=== PATIENT | male | born 1955 | race Caucasian/White ===

== ENCOUNTER 2016-06-22 12:50 | Emergency (ER) | payer MEDICARE, MEDICAID ==
[2016-06-22] MEDS ORDERED: ONDANSETRON 4 MG ODT TABLET SL ONE (13:53)
--- NOTE | 2016-06-22 13:53 | Emergency Department Record ---
History of Present Illness - General Chief Complaint: Fever Stated Complaint: FEVER Time Seen by Provider: 06/22/16 13:42 Source: Patient Mode of Arrival: Wheelchair Limitations: No limitations - History of Present Illness Initial Comments: The patient is here due to not feeling well for the last 5 hours. He has had mild body aches, nausea, one episode of vomiting and loose stools with a mild cough. The patient felt that he had a fever at home but no temp was taken. He denies any SHERWOOD, ST, AP, or dysuria. MD Complaint: Malaise Onset/Timin -: Hour(s) Temperature Source: Subjective Associated Symptoms: Cough, Diarrhea - Related Data Previous Rx's Medication Instructions Recorded Azithromycin [Zithromax] 250 mg PO ASDIR #6 tab 06/22/16 Ondansetron [Zofran Odt] 4 mg SL .Q4-6H PRN #12 tab.rapdis 06/22/16 Allergies Allergy/AdvReac Type Severity Reaction Status Date / Time Penicillins [PENICILLINS] Allergy Intermediate RASH Verified 06/22/16 13:31 Travel Screening - Travel/Exposure Within Last 30 Days Have you traveled within the last 30 days?: No - Travel/Exposure Within Last Year Have you traveled outside the [place] in the last year?: No - Additonal Travel Details Have you been exposed to anyone with a communicable illness?: No - Travel Symptoms Symptom Screening: None Review of Systems Constitutional: Denies: Chills, Fever Eyes: Denies: Eye discharge ENT: Denies: Congestion Respiratory: Denies: Cough, Dyspnea Past Medical History - SOCIAL HISTORY Smoking Status: Never smoker Alcohol Use: None Drug Use: None - RESPIRATORY Hx Respiratory Disorders: No Comment:: seasonal allergies - CARDIOVASCULAR Hx Cardio Disorders: Yes Hx Hypertension: Yes - NEURO Hx Neuro Disorders: Yes Hx of Neuromuscular Disease: Yes (CP) - GI Hx GI Disorders: Yes Hx Reflux: Yes - Hx Genitourinary Disorders: No - ENDOCRINE Hx Endocrine Disorders: No - MUSCULOSKELETAL Hx Musculoskeletal Disorders: Yes Comment:: CP->wheel chair bound - PSYCH Hx Psych Problems: Yes Hx Depression: Yes - HEMATOLOGY/ONCOLOGY Hx Hematology/Oncology Disorders: No Family Medical History Any Significant Family History?: Yes Hx Heart Disease: Mother *Heart Comment: CAD Physical Exam - General General Appearance: Alert, Cooperative, No acute distress - Head Head exam: Atraumatic, Normocephalic, Normal inspection - Eye Eye exam: Normal appearance, PERRL - ENT Throat exam: Normal inspection. negative: Tonsillar erythema, Tonsillar exudate - Neck Neck exam: Normal inspection, Full ROM. negative: Tenderness - Respiratory Respiratory exam: Normal lung sounds bilaterally. negative: Respiratory distress - Cardiovascular Cardiovascular Exam: Regular rate, Normal rhythm, Normal heart sounds - GI/Abdominal GI/Abdominal exam: Soft, Normal bowel sounds. negative: Tenderness - Extremities Extremities exam: negative: Normal inspection - Neurological Neurological exam: Abnormal gait (chronic due to CP.). negative: Normal gait - Psychiatric Psychiatric exam: negative: Agitated, Anxious Course Vital Signs 06/22/16 13:33 Temperature 98.3 F Pulse Rate 105 H Respiratory 18 Rate Blood Pressure 123/82 Pulse Ox 95 - Reevaluation(s) Reevaluation #1: The patient is doing very well at this time. I did discuss the CXR report with the patient and caregiver and he states the hiatal hernia is not new for the patient. Due to the possible infiltrate in the R base we will place the patient on a Zpak. and have him F/U with his PCP later this week. 06/22/16 14:42 Reevaluation #2: The patient is doing very well at this time. He is drinking fluids well with no nausea or vomiting. He states he is ready for home. 06/22/16 14:44 Medical Decision Making - Data Complexity MDM Data: Labs Ordered and/or Reviewed, X-Ray Ordered and/or Reviewed - Lab Data Result diagrams: 06/22/16 14:07 06/22/16 14:07 - Radiology Data Radiology results: Report reviewed (CXR: Possible RLL infiltrate or atelectasis. Large hiatal hernia.) Disposition Disposition: Discharge Clinical Impression: Upper respiratory infection, acute Disposition: Home, Self-Care Condition: (1) Good Instructions: Upper Respiratory Infection (ED) Additional Instructions: Please continue your regular medicines and take the ZPak as directed along with Zofran PRN. Please see your PCP later this week and return to the ER if worse. Prescriptions: Azithromycin [Zithromax] 250 mg PO ASDIR #6 tab Ondansetron [Zofran Odt] 4 mg SL .Q4-6H PRN #12 tab.rapdis PRN Reason: Nausea Forms: Patient Portal Access Time of Disposition: 14:44
[2016-06-22] MEDS ORDERED: ACETAMINOPHEN 325 MG TAB PO ONE (13:54)
[2016-06-22 14:12] LABS: BASO % 0.5 % (0-6); EOS % 1.1 % (0-6); GRAN % 67.5 % (47-80); HEMATOCRIT 43.7 % (42.0-52.0); HEMOGLOBIN 14.7 gm/dl (14.0-18.0); LYMPH % 19.4 % (16-45); MEAN CELL VOLUME 86.2 fl (81-97); MEAN CORPUSCULAR HGB CONC 33.6 g/dl (32-36); MEAN PLATELET VOLUME 10.5 fl (7.4-10.4); MONO % 11.5 % (0-9); PLATELET COUNT 175 K/uL (130-400); RED BLOOD COUNT 5.07 M/uL (4.40-5.70); RED CELL DISTRIBUTION WIDTH 14.1 % (11.5-14.5); WHITE BLOOD COUNT W/O DIFF 7.4 K/uL (4.2-12.2)
[2016-06-22 14:25] LABS: ALB/GLOB RATIO 1.3 (1.1-1.8); ALBUMIN 4.2 gm/dL (3.5-5.0); ALKALINE PHOSPHATASE 124 U/L (38-126); ALT/SGPT 31 U/L (21-72); ANION GAP 10.6 (7-16); AST/SGOT 22 U/L (17-59); BILIRUBIN,TOTAL 0.54 mg/dL (0.2-1.3); BLOOD UREA NITROGEN 14 mg/dL (9-20); CARBON DIOXIDE 27.4 mmol/L (22-30); CREATININE 0.7 mg/dL (0.66-1.25); EST GLOMERULAR FILTRATION RATE > 60 ml/min; GLUCOSE,RANDOM 120 mg/dL (70-110); TOTAL PROTEIN 7.5 gm/dL (6.3-8.2)
== END 2016-06-22 14:55 | disposition home or self-care (01) ==
LOC: ER 12:50
DX: J06.9 Acute upper respiratory infection, unspecified (principal); R19.7 Diarrhea, unspecified; R11.2 Nausea with vomiting, unspecified; R05 Cough
CPT/HCPCS: 71020; 80053; 85025; 99283; 99284

== ENCOUNTER 2016-09-25 11:55 | Emergency (ER) | payer MEDICARE, MEDICAID ==
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
== END 2016-09-25 12:51 | disposition home or self-care (01) ==
LOC: ER 11:55
DX: S00.90XA Unspecified superficial injury of unspecified part of head, initial encounter (principal); V78.1XXA Passenger on bus injured in noncollision transport accident in nontraffic accident, initial encounter
CPT/HCPCS: 99282

== ENCOUNTER 2017-01-25 13:38 | Emergency (ER) | payer MEDICARE, MEDICAID ==
--- NOTE | 2017-01-25 14:11 | Emergency Department Record ---
History of Present Illness - General Chief complaint: Rectal bleeding Stated complaint: BLOOD IN STOOL Time Seen by Provider: 01/25/17 13:48 Source: Patient Mode of Arrival: Wheelchair Limitations: No limitations - History of Present Illness Initial comments: 61 yo male presents with blood reported in his stool last night. No blood or bowel movement today. The patient denies any pain. No fever. No nausea or vomiting. He reports similar symptoms in the past with hemorrhoids. He denies any rectal or anus pain. He lives in a local assisted. No abdominal pain. No anticoagulants. On 01/13/16 Dr Walsh performed a colonoscopy. He had polyps, diverticulosis, and internal hemorrhoids Onset/Timin -: Days(s) Radiation: None Quality: Painless Improves with: None Worsens with: None Associated Symptoms: Denies other symptoms Treatments Prior to Arrival: None - Related Data Allergies Allergy/AdvReac Type Severity Reaction Status Date / Time Penicillins [PENICILLINS] Allergy Intermediate RASH Unverified 09/17/16 19:51 Travel Screening - Travel/Exposure Within Last 30 Days Have you traveled within the last 30 days?: No Review of Systems Constitutional: Denies: Chills, Fever, Malaise, Weakness Eyes: Denies: Eye discharge ENT: Denies: Congestion, Throat pain Respiratory: Denies: Cough Cardiovascular: Denies: Chest pain, Syncope Endocrine: Denies: Fatigue Gastrointestinal: Reports: Hematochezia. Denies: Abdominal pain, Diarrhea, Hematemesis, Nausea, Vomiting Genitourinary: Denies: Dysuria, Frequency, Hematuria Musculoskeletal: Denies: Arthralgia, Back pain, Myalgia, Neck pain Skin: Denies: Bruising, Change in color, Rash Neurological: Denies: Headache, Numbness, Vertigo, Weakness Psychiatric: Denies: Anxiety Hematological/Lymphatic: Denies: Blood Clots, Easy bleeding, Easy bruising, Swollen glands Past Medical History - SOCIAL HISTORY Smoking Status: Never smoker - RESPIRATORY Hx Respiratory Disorders: No Comment:: seasonal allergies - CARDIOVASCULAR Hx Cardio Disorders: Yes Hx Hypertension: Yes - NEURO Hx Neuro Disorders: Yes Hx of Neuromuscular Disease: Yes (CP) - GI Hx GI Disorders: Yes Hx Reflux: Yes - Hx Genitourinary Disorders: No - ENDOCRINE Hx Endocrine Disorders: No - MUSCULOSKELETAL Hx Musculoskeletal Disorders: Yes Comment:: CP->wheel chair bound - PSYCH Hx Psych Problems: Yes Hx Depression: Yes - HEMATOLOGY/ONCOLOGY Hx Hematology/Oncology Disorders: No Family Medical History Any Significant Family History?: Yes Hx Heart Disease: Mother *Heart Comment: CAD Physical Exam - General General Appearance: Alert, Oriented x3, Cooperative Limitations: No limitations - Head Head exam: Atraumatic, Normal inspection - Eye Eye exam: Normal appearance. negative: Conjunctival injection, Scleral icterus - ENT ENT exam: Normal exam Ear exam: Normal external inspection Nasal Exam: Normal inspection Mouth exam: Normal external inspection - Neck Neck exam: Normal inspection - Respiratory Respiratory exam: Normal lung sounds bilaterally. negative: Respiratory distress - Cardiovascular Cardiovascular Exam: Regular rate, Normal rhythm, Normal heart sounds - GI/Abdominal GI/Abdominal exam: Soft. negative: Distended, Guarding, Rebound, Rigid, Tenderness - Rectal Rectal exam: Heme (+) stool, Normal inspection, Other (The stool was medium light brown, no blood visibly, He was heme positive, no melena, no mass). negative: Black stool, Bloody stool, Decreased rectal tone, Fecal impaction, Hemorrhoids, Mass Course Vital Signs 01/25/17 13:59 Temperature 97.4 F L Pulse Rate 94 H Respiratory 18 Rate Blood Pressure 143/92 Pulse Ox 94 L - Reevaluation(s) Reevaluation #1: The labs were checked No acute changes on the CBC,CMP The Hgb was 14.2 01/25/17 15:48 01/25/17 16:17 Dr Landis was notified of the patient being in the ER Dr Landis saw the patient. We established an outpatient follow up plan of care Medical Decision Making - Lab Data Result diagrams: 01/25/17 14:30 01/25/17 14:30 Disposition Disposition: Discharge Clinical Impression: Rectal bleeding Disposition: Home, Self-Care Condition: (1) Good Instructions: Rectal Bleeding (ED) Additional Instructions: Return immediately if your have pain, fever, return of blood Call your doctor for close follow up to recheck your stool for blood Referrals: SERGEY WALSH [DOCTOR OF OSTEOPATH] - [facility] Special[facility] [Provider Group] Forms: Patient Portal Access Time of Disposition: 15:50 Quality - Quality Measures Quality Measures: N/A - Blood Pressure Screening Does Patient Have Any of the Following: No Blood Pressure Classification: Pre-Hypertensive BP Reading Systolic Measurement: 128 Diastolic Measurement: 78 Screening for High Blood Pressure: < Pre-Hypertensive BP, F/U Documented > [ G8950] Pre-Hypertensive Follow-up Interventions: Referral to alternative/primary care provider.
[2017-01-25 14:35] LABS: BASO % 0.4 % (0-6); EOS % 2.4 % (0-6); HEMATOCRIT 45.5 % (42.0-52.0); MEAN CELL VOLUME 85.2 fl (81-97); MEAN CORPUSCULAR HGB CONC 35.2 g/dl (32-36); MEAN PLATELET VOLUME 10.4 fl (7.4-10.4); MONO % 12.2 % (0-9); PLATELET COUNT 187 K/uL (130-400); RED BLOOD COUNT 5.34 M/uL (4.40-5.70); RED CELL DISTRIBUTION WIDTH 14.4 % (11.5-14.5); WHITE BLOOD COUNT W/O DIFF 6.7 K/uL (4.2-12.2)
[2017-01-25 14:49] LABS: INR 0.99; PROTHROMBIN TIME (PATIENT) 10.7 SECONDS (9.5-12.1)
[2017-01-25 14:51] LABS: BLOOD UREA NITROGEN 19 mg/dL (6-20); CREATININE 0.6 mg/dL (0.7-1.2); EST GLOMERULAR FILTRATION RATE > 60 mL/min
[2017-01-25 14:52] LABS: TOTAL PROTEIN 7.7 g/dL (6.6-8.7)
[2017-01-25 14:54] LABS: GLUCOSE,RANDOM 110 mg/dL (74-109)
[2017-01-25 14:56] LABS: ALT/SGPT 18 U/L (<41); AST/SGOT 19 U/L (10.0-50.0)
[2017-01-25 14:57] LABS: ALB/GLOB RATIO 1.2 (1.1-1.8); ALBUMIN 4.2 g/dL (4.0-5.0); ALKALINE PHOSPHATASE 114 U/L (40-129)
== END 2017-01-25 16:40 | disposition home or self-care (01) ==
LOC: ER 13:38
DX: K62.5 Hemorrhage of anus and rectum (principal); I10 Essential (primary) hypertension
CPT/HCPCS: 80053; 85025; 85610; 99283

== ENCOUNTER 2017-05-18 13:51 | Emergency (ER) | payer MEDICARE, MEDICAID ==
[2017-05-18] MEDS ORDERED: ONDANSETRON 4 MG ODT TABLET SL ONE (14:37)
[2017-05-18 14:44] LABS: INFLUENZA A NEGATIVE (NEGATIVE); INFLUENZA B NEGATIVE (NEGATIVE)
--- NOTE | 2017-05-18 15:21 | Emergency Department Record ---
History of Present Illness - General Chief complaint: Nausea, Vomiting, Diarrhea Stated complaint: VOMITING, DIARRHEA Time Seen by Provider: 05/18/17 14:33 Source: Patient Mode of Arrival: Wheelchair Limitations: No limitations - History of Present Illness Initial comments: pt has been having vomiting and diarrhea for 2 days. MD complaint: Diarrhea, Nausea, Vomiting -: Unknown Improves with: None Worsens with: None Associated Symptoms: Cough, Headaches, Nausea/vomiting - Related Data Allergies Allergy/AdvReac Type Severity Reaction Status Date / Time Penicillins [PENICILLINS] Allergy Intermediate RASH Verified 05/18/17 14:11 Travel Screening - Travel/Exposure Within Last 30 Days Have you traveled within the last 30 days?: No Review of Systems Reviewed: No additional complaints except as noted below Constitutional: Reports: As per HPI. Denies: Chills, Fever, Malaise, Night sweats, Weakness, Weight change Eyes: Reports: As per HPI. Denies: Eye discharge, Eye pain, Photophobia, Vision change ENT: Reports: As per HPI. Denies: Congestion, Dental pain, Ear pain, Epistaxis , Hearing loss, Throat pain Respiratory: Reports: As per HPI. Denies: Cough, Dyspnea, Hemoptysis, Stridor, Wheezes Cardiovascular: Reports: As per HPI. Denies: Arrhythmia, Chest pain, Dyspnea on exertion, Edema, Murmurs, Orthopnea, Palpitations, Paroxysmal nocturnal dyspnea, Rheumatic Fever, Syncope Endocrine: Reports: As per HPI. Denies: Fatigue, Heat or cold intolerance, Polydipsia, Polyuria Gastrointestinal: Reports: As per HPI. Denies: Abdominal pain, Constipation, Diarrhea, Hematemesis, Hematochezia, Melena, Nausea, Vomiting Genitourinary: Reports: As per HPI. Denies: Dysuria, Frequency, Hematuria, Incontinence, Retention, Testicular pain, Testicular mass, Urgency Musculoskeletal: Reports: As per HPI. Denies: Arthralgia, Back pain, Gout, Joint swelling, Myalgia, Neck pain Skin: Reports: As per HPI. Denies: Bruising, Change in color, Change in hair/ nails, Lesions, Pruritus, Rash Neurological: Reports: As per HPI. Denies: Abnormal gait, Confusion, Headache, Numbness, Paresthesias, Seizure, Tingling, Tremors, Vertigo, Weakness Psychiatric: Reports: As per HPI. Denies: Anxiety, Auditory hallucinations, Depression, Homicidal thoughts, Suicidal thoughts, Visual hallucinations Hematological/Lymphatic: Reports: As per HPI. Denies: Anemia, Blood Clots, Easy bleeding, Easy bruising, Swollen glands Past Medical History - SOCIAL HISTORY Smoking Status: Never smoker Alcohol Use: None Drug Use: None - RESPIRATORY Hx Respiratory Disorders: Yes Comment:: seasonal allergies - CARDIOVASCULAR Hx Cardio Disorders: Yes Hx Hypertension: Yes - NEURO Hx Neuro Disorders: Yes Hx of Neuromuscular Disease: Yes (CP) - GI Hx GI Disorders: Yes Hx Reflux: Yes - Hx Genitourinary Disorders: No - ENDOCRINE Hx Endocrine Disorders: No - MUSCULOSKELETAL Hx Musculoskeletal Disorders: Yes Comment:: CP->wheel chair bound - PSYCH Hx Psych Problems: Yes Hx Depression: Yes - HEMATOLOGY/ONCOLOGY Hx Hematology/Oncology Disorders: No Family Medical History Any Significant Family History?: Yes Hx Heart Disease: Mother *Heart Comment: CAD Physical Exam - General General Appearance: Alert, Oriented x3, Cooperative, Mild distress - Head Head exam: Normal inspection - Eye Eye exam: Normal appearance, PERRL, EOMI Pupils: Normal accommodation - ENT ENT exam: Normal exam, Mucous membranes moist, Normal external ear exam, Normal orophraynx Ear exam: Normal external inspection. negative: External canal tenderness Nasal Exam: Normal inspection. negative: Discharge, Sinus tenderness Mouth exam: Normal external inspection, Tongue normal Teeth exam: Normal inspection. negative: Dental caries Throat exam: Normal inspection. negative: Tonsillar erythema, Tonsillar exudate - Neck Neck exam: Normal inspection, Full ROM. negative: Tenderness - Respiratory Respiratory exam: Normal lung sounds bilaterally. negative: Respiratory distress - Cardiovascular Cardiovascular Exam: Normal rhythm, Normal heart sounds, Tachycardia - GI/Abdominal GI/Abdominal exam: Soft, Normal bowel sounds. negative: Tenderness - Rectal Rectal exam: Deferred - exam: Deferred - Extremities Extremities exam: Normal inspection, Full ROM, Normal capillary refill. negative: Tenderness - Back Back exam: Reports: Normal inspection, Full ROM. Denies: Muscle spasm, Rash noted, Tenderness - Neurological Neurological exam: Alert, CN II-XII intact, Normal gait, Oriented X3, Reflexes normal - Psychiatric Psychiatric exam: Normal affect, Normal mood - Skin Skin exam: Dry, Intact, Normal color, Warm Course Vital Signs 05/18/17 13:57 Temperature 97.9 F Pulse Rate 102 H Respiratory 24 Rate Blood Pressure 150/103 Pulse Ox 95 - Reevaluation(s) Reevaluation #1: 05/18/17 15:34 pt feels much better. hes able to keep juice down Medical Decision Making - Lab Data Lab Results 05/18/17 Range/Units 14:30 Influenza Type A Ag Negative (NEGATIVE) Influenza Type B Ag Negative (NEGATIVE) Disposition Disposition: Discharge Clinical Impression: Vomiting and diarrhea Disposition: Home, Self-Care Condition: (1) Good Instructions: Acute Nausea and Vomiting (ED), Acute Diarrhea (ED) Additional Instructions: follow up with family doctor. rest return sooner if worse. clear liquids for 6 hours. push fluids Forms: Patient Portal Access Quality - Quality Measures Quality Measures: N/A - Blood Pressure Screening Does Patient Have Any of the Following: No Blood Pressure Classification: Hypertensive Reading Systolic Measurement: 150 Diastolic Measurement: 103 Screening for High Blood Pressure: < First Hypertensive BP, F/U Documented > [ G8950] First Hypertensive Follow-up Interventions: Follow-up with rescreen GT 1 day and LT 4 weeks.
== END 2017-05-18 15:44 | disposition home or self-care (01) ==
LOC: ER 13:51
DX: R11.2 Nausea with vomiting, unspecified (principal); R19.7 Diarrhea, unspecified; R05 Cough; R51 Headache; I10 Essential (primary) hypertension
CPT/HCPCS: 87400; 99282

== ENCOUNTER 2018-01-03 13:49 | Emergency (ER) | payer MEDICARE, MEDICAID ==
[2018-01-03] MEDS ORDERED: ACETAMINOPHEN 325 MG TAB PO ONE (14:03)
--- NOTE | 2018-01-03 14:07 | Emergency Department Record ---
History of Present Illness - General Chief complaint: Head Injury Stated complaint: FALL HIT BRIDGE OF NOSE YESTERDAY,NAUSEA,HEADACHE Time Seen by Provider: 01/03/18 13:58 Source: Patient, Family Mode of Arrival: Wheelchair Limitations: Physical limitation (Hx of CP.) - History of Present Illness Initial comments: The patient fell yesterday and injured his nose and forehead on his nightstand yesterday. Since he has had a mild [place]ER[place] and did vomit after lunch. The patient denies any neck pain or any other injury. He does have a hx of significant CP and is wheelchair bound and does work at [employer]. Complaint: Head injury, Head pain Onset/Timin -: Days(s) Location: Face Loss of Consciousness: No Previous Trauma to this Area: No Place: Home Radiation: None Severity: Mild Severity scale (1-10): 3 Quality: Aching Consistency: Constant Provoking factors: None known Other Injuries: Laceration Associated Symptoms: Nausea, Vomiting - Related Data Previous Rx's Medication Instructions Recorded Acetaminophen [Tylenol 325Mg] 650 mg PO Q6H #1 tablet 01/03/18 Allergies/Adverse reactions: Allergies Allergy/AdvReac Type Severity Reaction Status Date / Time Penicillins [PENICILLINS] Allergy Intermediate RASH Verified 01/03/18 13:57 Travel Screening - Travel/Exposure Within Last 30 Days Have you traveled within the last 30 days?: No Review of Systems Constitutional: Denies: Chills, Fever Eyes: Denies: Eye discharge ENT: Denies: Congestion Respiratory: Denies: Cough, Dyspnea Past Medical History - SOCIAL HISTORY Smoking Status: Never smoker Alcohol Use: None Drug Use: None - RESPIRATORY Hx Respiratory Disorders: Yes Comment:: seasonal allergies - CARDIOVASCULAR Hx Cardio Disorders: Yes Hx Hypertension: Yes - NEURO Hx Neuro Disorders: Yes Hx of Neuromuscular Disease: Yes (CP) - GI Hx GI Disorders: Yes Hx Reflux: Yes - Hx Genitourinary Disorders: No - ENDOCRINE Hx Endocrine Disorders: No - MUSCULOSKELETAL Hx Musculoskeletal Disorders: Yes Comment:: CP->wheel chair bound - PSYCH Hx Psych Problems: Yes Hx Depression: Yes - HEMATOLOGY/ONCOLOGY Hx Hematology/Oncology Disorders: No Family Medical History Any Significant Family History?: Yes Hx Heart Disease: Mother *Heart Comment: CAD Physical Exam - General General Appearance: Alert, Cooperative, No acute distress - Head Head exam: Normocephalic. negative: Atraumatic, Normal inspection (There are mild contusion to the mid frontal area and bridge of the nose.) - Eye Eye exam: Normal appearance, PERRL - Neck Neck exam: Normal inspection, Full ROM. negative: Tenderness (There is no Cspine tenderness.) - Respiratory Respiratory exam: Normal lung sounds bilaterally. negative: Respiratory distress - Cardiovascular Cardiovascular Exam: Regular rate, Normal rhythm, Normal heart sounds - Neurological Neurological exam: Abnormal gait (Chronic.), Alert. negative: Normal gait Course Vital Signs 01/03/18 13:53 Temperature 97.4 F L Pulse Rate 87 Respiratory 20 Rate Blood Pressure 124/92 Pulse Ox 94 L - Reevaluation(s) Reevaluation #1: The patient is presently doing better. I did inform him of the neg head CT and the need for Tylenol for pain. 01/03/18 14:54 Medical Decision Making - Data Complexity MDM Data: X-Ray Ordered and/or Reviewed - Radiology Data Radiology results: Report reviewed (Head CT: Neg for acute changes per Rad.) Disposition Disposition: Discharge Clinical Impression: Head injury due to trauma Qualifiers: Encounter type: initial encounter Qualified Code(s): S09.90XA - Unspecified injury of head, initial encounter Disposition: Home, Self-Care Condition: (2) Stable Instructions: Head Injury (ED) Additional Instructions: Please take Tylenol for pain and see your family doctor if not better in 2 days. Return to the ER for any worsening symptoms. Prescriptions: Acetaminophen [Tylenol 325Mg] 650 mg PO Q6H #1 tablet Forms: Patient Portal Access Time of Disposition: 14:56 Quality - Quality Measures Quality Measures: Blunt Head Trauma (>2yr) - Blunt Head Trauma - Adult Quality Measure: Measure #415: Utilization of CT for Minor Blunt Head Trauma ICD10 Codes Entered: Yes View Details: Yes Was CT ordered: Yes Does Patient Have Any of the Following: Ventricular Shunt Patient Presented Within 24 Hours of Injury: Yes [place] Score: Please complete [place] Coma Scale above Utilization of CT for Minor Blunt Head Trauma: Patient Excluded [G9531] - Blood Pressure Screening View Details: Yes Does Patient Have Any of the Following: No Blood Pressure Classification: Hypertensive Reading Systolic Measurement: 124 Diastolic Measurement: 92 Screening for High Blood Pressure: < First Hypertensive BP, F/U Documented > [ G8950] First Hypertensive Follow-up Interventions: Referral to alternative/primary care provider.
--- NOTE | 2018-01-04 13:23 | CT SCAN REPORT ---
EXAM: CT OF THE BRAIN WITHOUT CONTRAST HISTORY: MENTAL STATUS CHANGE. TECHNIQUE: Sequential axial images were obtained from the foramen magnum to the vertex without contrast administration. FINDINGS: The brain volume is normal. No large territorial infarct, hemorrhage , mass effect, or midline shift. No extraaxial fluid collection. There is calcification of the falx. The orbits, paranasal sinuses, and mastoid air cells are normal. IMPRESSION: 1. NO ACUTE INTRACRANIAL ABNORMALITY IS APPRECIATED. 2. PERIVENTRICULAR SMALL VESSEL ISCHEMIC CHANGE. 3. CALCIFICATION OF THE FALX. [facility]BER: [id number] [facility]
== END 2018-01-03 15:19 | disposition home or self-care (01) ==
LOC: ER 13:49
DX: S00.33XA Contusion of nose, initial encounter (principal); S09.90XA Unspecified injury of head, initial encounter; R51 Headache; R11.2 Nausea with vomiting, unspecified; W18.09XA Striking against other object with subsequent fall, initial encounter; Y92.009 Unspecified place in unspecified non-institutional (private) residence as the place of occurrence of the external cause; I10 Essential (primary) hypertension
CPT/HCPCS: 70450; 99283